=== PATIENT | male | born 1950 | race African-American/Black ===

== ENCOUNTER 2016-10-11 13:31 | Inpatient (IN) ==
[2016-10-11 14:11] LABS: Basophils % 0.1 % (0.0-0.8); Eosinophils % 0.1 % (0.00-10.9); Hematocrit 35.7 VOL% (42.0-52.0); Hemoglobin 11.5 GM/DL (14.0-18.0); Immature Granulocytes % 0.5 %; Lymphocytes # 1.7 10*3/uL (1.4-4.0); Lymphocytes % 8.6 % (21.2-54.2); Mean Corpuscular HGB Conc 32.2 GM/DL (32-36); Mean Corpuscular Hemoglobin 25 PG (27-34); Mean Corpuscular Volume 76.1 FL (87-102); Mean Platelet Volume 11.3 FL (9.6-12.0); Monocytes # 1.6 10*3/uL (0.11-0.8); Monocytes % 7.7 % (1.7-12.7); Neutrophils # 16.7 10*3/uL (1.4-7.4); Platelet Count 237 T/CUMM (130-400); Red Blood Count 4.69 MC/CUMM (3.8-5.5); Red Cell Distribution Width 17.3 % (9.3-17.3); White Blood Count 20.2 T/CUMM (4-12)
[2016-10-11 14:20] LABS: Apearance,Urine Slightly Hazy (Clear); Bilirubin,Urine Negative (Negative); Blood, Urine Large mg/dL (Negative); Glucose,Urine (UA) Negative (Negative); Ketones,Urine Negative (Negative); Mucus,Urine Occasional /LPF (Occasional); Nitrite,Urine Negative (Negative); Protein,Urine 30 MG/DL; RBC,Urine 344 /HPF (0-4); Squamous Epithelial Cell,Urine Occasional /HPF (0-10); Urine Color Straw (Yellow); Urine Specific Gravity 1.008 (1.001-1.035); Urine Urobilinogen < 2.0 EU/DL (0.2-1.0); WBC,Urine 74 /HPF (0-6)
[2016-10-11 14:22] LABS: PT Patient Result 10.2 SECS; Partial Thromboplastin Time 24.4 SECS (0-40)
[2016-10-11 14:29] LABS: Albumin 3.4 G/DL (3.4-5.0); Bilirubin,Total 0.4 MG/DL (0.2-1.0); Calcium 9.3 MG/DL (8.5-10.1); Osmolality,Calculated 279.5 MOS/KG (273-304); Potassium 3.7 MMOL/L (3.5-5.1); Total Protein 7.5 G/DL (6.4-8.3)
[2016-10-11 14:32] LABS: Anisocytosis Slight; Lymphocytes 13 % (20-55); Platelet Estimate Adequate; Poikilocytosis Slight; Segmented Neutrophils 80 % (50-85); Target Cells Slight; Total Cells Counted 100
[2016-10-11] MEDS ORDERED: LEVOFLOXACIN INJ 500 MG in PREMIX 1 EACH IV STA (15:20)
[2016-10-11] MEDS ORDERED: LEVOFLOXACIN INJ 100 ML IV ONE (15:21)
--- NOTE | 2016-10-11 15:40 | Ultrasound Report ---
Referring Physician: Valentino Powell Exam: US scrotum Date: October 11, 2016 Reason: Left testicular pain Comparison: Scrotal ultrasound June 05, 2010 Technique: Duplex scan of the scrotum was performed using B-Mode/grayscale imaging and Doppler spectral analysis and color flow. Ultrasound images were captured and stored. Findings: The right testicle measures 4.4 x 2.9 x 2.8 cm, and the left testicle measures 3.3 x 2.6 x 2.3 cm. No suspicious intratesticular lesion is identified. Both testicles demonstrate normal, symmetric vascular flow. Specifically, there is no evidence of testicular torsion. The right epididymal head measures 1.2 x 1.0 cm, and the left epididymal head measures 1.1 x 0.9 cm. There is a 0.5 x 0.4 cm cyst at the right epididymal head. The left epididymal body/tail is enlarged and heterogeneous with several complex cystic areas. There is also increased vascular flow at the left epididymis, and the patient is tender in this region. This is concerning for epididymitis with possible abscess formation. There are also small bilateral hydroceles with possible mild internal debris on the right. Impression: 1. There is no evidence of testicular torsion. 2. The left epididymal body/tail is enlarged and heterogeneous with several complex cystic areas. There is also increased vascular flow at the left epididymis, and the patient is tender in this region. This is concerning for left epididymitis with abscess formation. 3. Small bilateral hydroceles with possible internal debris on the right. PROCEDURE INTERPRETED AT [facility] DEPARTMENT OF RADIOLOGY Final Report Signed by: Dr. Baldev Almonte
[2016-10-11] MEDS ORDERED: GLUCAGON 1 MG VIAL IM PRN (16:06)
[2016-10-11] MEDS ORDERED: ONDANSETRON 4 MG/2 ML VIAL IV PRN (16:06)
[2016-10-11] MEDS ORDERED: ACETAMINOPHEN 325 MG TABLET PO PRN (16:06)
[2016-10-11] MEDS ORDERED: HYDROmorphone 2 MG/1 ML VIAL IV PRN (16:06)
[2016-10-11] MEDS ORDERED: DEXTROSE 50% 25 GM/50 ML VIAL IV PRN (16:06)
--- NOTE | 2016-10-11 16:15 | Emergency Department Note ---
Kristin Hardy Gwan, am scribing for, and in the presence of, Valentino Powell MD 14:50. Sherry Hardy Phillip K, MD, personally performed the services described in this documentation, ascribed by Tomas Foster in my presence, and it is both accurate and complete 615 . Arrival - Arrival Chief Complaint: GI Bleed/Rectal Stated Complaint: passing blood ED Nursing Triage Note: Pt c/o bright red blood in his stool with pain around his scrotum started this am. Mode of Arrival: Ambulatory Limitations: No Limitations Source: Patient, Old Records Reviewed, Asset Protection Manager, RN Notes Reviewed - History of Present Illness HPI Narrative: Pt is a 65 y/o male who presents to the ED with a c/o hematuria with an onset today. Patient stated that he is followed by Dr. Marquez and that he was last seen in office 2 months ago. His visit resulted in a follow up MRI scheduled in [place] on 11/17/2016. Patient continued to note that his associated sxs have been pain/edema to left testicle and chills. Patient denies any fever, pain in back, abd pain or any N/V. He confirmed that this has happened before resulting in a biopsy of Prostate performed [address] Marquez. Pt has a PMHx of HTN, NIDDM, dyslipidemia, ORIF and hernia repair. No other problems/ complaints reported in ED. Onset (ago): hour(s) Consistency: constant Severity: moderate Allergies/Adverse Reactions: Allergies Allergy/AdvReac Type Severity Reaction Status Date / Time No Known Allergies Allergy Unverified 11/16/14 11:04 Home Medications: Home Medications Medication Instructions Recorded Confirmed Type Aspirin EC Tab 81 mg PO DAILY 11/16/14 10/11/16 History Hydrochlorothiazide 25 mg PO DAILY 11/16/14 10/11/16 History Metformin HCl 500 mg PO BID 11/16/14 10/11/16 History Metoprolol Succinate 100 mg PO DAILY 11/16/14 10/11/16 History Pravastatin [Pravachol] 40 mg PO BEDTIME 11/16/14 10/11/16 History amLODIPine [Norvasc] 10 mg PO DAILY 11/16/14 10/11/16 History glipiZIDE [Glipizide Xl] 10 mg PO BID 11/16/14 10/11/16 History Albuterol Sulfate [Ventolin HFA] 2 puff INH Q6H PRN 10/11/16 10/11/16 History Finasteride 5 mg PO DAILY 10/11/16 10/11/16 History cloNIDine TAB [Catapres Tab] 0.2 mg PO BEDTIME 10/11/16 10/11/16 History Review of System - Review of System 12 point system: reviewed and no additional remarkable complaints except as stated - Review of System Constitutional: Absent: chills, fever Eyes: Absent: discharge, pain Head/Ears/Nose/Throat: Absent: earache Respiratory: Absent: cough Cardiovascular: Absent: chest pain, orthopnea Gastrointestinal: Present: other (blood in stool). Absent: abdominal pain, nausea Genitourinary male: Present: testicular pain. Absent: urgency, dysuria, frequency Musculoskeletal: Absent: arm pain, lower back pain, leg pain Medical,Surgical,& Family Hx - Medical History Cardio: History of: Hypertension Endocrine: History of: Diabetes Mellitus (NIDDM), Dyslipidemia Respiratory: History of: Asthma - Surgical History Abdominal Surgeries: Surgical HX of: Hernia Repair Orthopedic Surgeries: Surgical HX of;: Orthopedic Surgery (ORIF) - Family History Family History: Reports;: Family Cancer (mom sister), Family Hypertension (mom dad) Denies;: Family Diabetes, Family Heart Disease, Family Psychiatric Problems, Family Stroke - Social History Smoking Status: Never smoker Exam Vital Signs: Vital Signs Temperature 99.6 F 10/11/16 13:36 Pulse Rate 96 H 10/11/16 13:36 Respiratory Rate 18 10/11/16 13:36 Blood Pressure 235/100 10/11/16 13:36 O2 Sat by Pulse Oximetry 100 10/11/16 13:36 - General General appearance: alert, in no apparent distress - Head Head exam: Present: atraumatic, normocephalic - Eye Eye exam: Present: normal appearance, PERRL, EOMI - ENT ENT exam: Present: normal oropharynx, mucous membranes moist, TM's normal bilaterally, normal external ear exam - Neck Neck exam: Present: full ROM, trachea midline. Absent: tenderness, meningismus - Chest Chest inspection: Present: symmetric chest wall rise. Absent: tenderness - Abdominal Exam Abdominal exam: Present: soft, normal bowel sounds. Absent: distention, tenderness - Rectal Exam Rectal exam: Present: heme (-) stool - exam: Present: testicular tenderness (edema/tenderness noted ot left testicle ), other (prostate tenderness) - Extremities Exam Extremities exam: Present: full ROM, other (+1 edema noted ). Absent: tenderness, calf tenderness - Back Exam Back exam: Present: full ROM. Absent: tenderness - Neurological Exam Neurological exam: Present: alert, oriented X3, CN II-XII intact. Absent: motor sensory deficit - Psychiatric Psychiatric exam: Present: normal affect, normal mood - Skin Skin exam: Present: warm, dry, intact, normal color Results - Labs CBC & BMP: 10/11/16 13:47 10/11/16 13:47 Lab Results: I have reviewed the patients labs Labs: Laboratory Tests 10/11/16 13:47 WBC 20.2 H RBC 4.69 Hgb 11.5 L Hct 35.7 L MCV 76.1 L MCH 25 L Plt Count 237 Neut % (Auto) 83.0 H Lymph % (Auto) 8.6 L Neut # (Auto) 16.7 H [place] # (Auto) 1.6 H Laboratory Tests 10/11/16 10/11/16 13:47 13:47 INR 1.0 PT Patient/Control Mix 10.2 Circ Anticoag PTT 24.4 Urine pH 8.0 Ur Specific [place] 1.008 Urine Protein 30 Urine Blood Large Urine Urobilinogen < 2.0 H Urine Leukocytes Large H Urine RBC 344 Urine WBC 74 Ur Squamous Epith Cells Occasional Urine Mucus Occasional Laboratory Tests 10/11/16 10/11/16 13:47 13:47 WBC 20.2 H RBC 4.69 Hgb 11.5 L Hct 35.7 L MCV 76.1 L MCH 25 L Plt Count 237 Neut % (Auto) 83.0 H Lymph % (Auto) 8.6 L Neut # (Auto) 16.7 H [place] # (Auto) 1.6 H Lymphocytes 13 L Sodium 139 Potassium 3.7 Chloride 105 Carbon Dioxide 27 BUN 15 Creatinine 1.10 Glucose 129 H ALT 15 L Globulin 4.1 H Albumin/Globulin Ratio 0.8 L Laboratory Tests 10/11/16 13:47 Blood Type A NEGATIVE Antibody Screen Negative Laboratory Tests 10/11/16 15:01 Lactic Acid 1.6 - Diagnostic Findings Procedure: Ultrasound: report reviewed by me (Scrotal ultrasound: 1. There is no evidence of testicular torsion. 2. The left epidiymal body/tail is enlarged and heterogeneous with several complex cystic areas. There is also increased vascular flow at the left epididymis, and the patient is tender in thsi region. Thi sis concerning for left epididymitis with abscess formation. 3. Small bilateral hydroceles with possible internal debris on the right. ) Disposition Clinical Impression: Left epididymitis, Possible scrotal abscess, Urinary tract infection, Prostatitis Case discussed with: patient Disposition: Still a Patient Condition: Guarded Additional Instructions: Admit to Dr. Marquez.
[2016-10-11] MEDS ORDERED: cloNIDine 0.1 MG TABLET ONE (17:27)
[2016-10-11] MEDS: SODIUM CHLORIDE 0.9% 1,000 ML IV SCH (18:31)
[2016-10-11] MEDS: cefTRIAXone 1,000 MG in SODIUM CHLORIDE 0.9% 100 ML IV SCH (18:32)
[2016-10-11] MEDS ORDERED: ALBUTEROL 2.5 MG/3 ML NEB RESP TX SCH (19:22)
[2016-10-11] MEDS: DOCUSATE SODIUM 100 MG CAPSULE PO SCH (20:55)
[2016-10-11] MEDS: PRAVASTATIN 40 MG TABLET PO SCH (20:55)
[2016-10-11] MEDS ORDERED: ALBUTEROL 2.5 MG/3 ML NEB RESP TX PRN (22:20)
[2016-10-12] MEDS: SODIUM CHLORIDE 0.9% 1,000 ML IV SCH ×3 (03:00→20:46)
--- NOTE | 2016-10-12 07:51 | Urology History & Physical ---
- Constitutional Constitutional: Absent: excessive sweating, fatigue, malaise, weakness - EENT Nose, mouth and throat: Absent: dysphagia, sore throat - Cardiovascular Cardiovascular: Absent: chest pain with activity, dyspnea on exertion, radiating jaw, neck or arm pain, palpitations - Respiratory Respiratory: Absent: cough, hemoptysis, wheezing - Gastrointestinal Gastrointestinal: Absent: bloating, melena, vomiting, jaundice - Genitourinary Genitourinary: Present: as per HPI - Neurological Neurological: Absent: abnormal gait, abnormal speech - Psychiatric Psychiatric: Absent: anxiety, depression History of Present Illness Chief complaint: Left scrotal swelling and hematuria History of present illness: Mr. Dee is a 65 year old male This 65-year-old black male has a history of BPH and is been on Proscar. He was previously scheduled to have an MRI of his prostate was not able to have this done and is been scheduled for the summer. He was seen in the emergency room with a one-day history of hematuria and pain and swelling in the left testicle. He was noted to have pyuria and elevated white count and an elevated temperature and scrotal ultrasound showed a left epididymitis. He is admitted for cultures and IV antibiotics. The patient is a type II diabetic on oral medication Home Medications Medication Instructions Recorded Confirmed Type Aspirin EC Tab 81 mg PO DAILY 11/16/14 10/11/16 History Hydrochlorothiazide 25 mg PO DAILY 11/16/14 10/11/16 History Metformin HCl 500 mg PO BID 11/16/14 10/11/16 History Metoprolol Succinate 100 mg PO DAILY 11/16/14 10/11/16 History Pravastatin [Pravachol] 40 mg PO BEDTIME 11/16/14 10/11/16 History amLODIPine [Norvasc] 10 mg PO DAILY 11/16/14 10/11/16 History glipiZIDE [Glipizide Xl] 10 mg PO BID 11/16/14 10/11/16 History Albuterol Sulfate [Ventolin HFA] 2 puff INH Q6H PRN 10/11/16 10/11/16 History Finasteride 5 mg PO DAILY 10/11/16 10/11/16 History cloNIDine TAB [Catapres Tab] 0.2 mg PO BEDTIME 10/11/16 10/11/16 History Allergies Allergy/AdvReac Type Severity Reaction Status Date / Time No Known Allergies Allergy Unverified 11/16/14 11:04 Medical,Surgical,& Family Hx - Medical History Cardio: History of: Hypertension Psychological: No history of: Psychiatric Problems Neurology: No history of: Neurological Problems Endocrine: History of: Diabetes Mellitus (NIDDM), Dyslipidemia Rheumatology: No history of;: Rheumatological Problems Respiratory: History of: Asthma Renal: No history of: Renal Problems Genitourinary: History of: Prostate Problems Gastrointestinal: No history of: GI Problems - Surgical History Surgical History: noncontributory Cardiac Surgeries: Patient Denies: Cardiac Surgery Abdominal Surgeries: Surgical HX of: Hernia Repair Orthopedic Surgeries: Surgical HX of;: Orthopedic Surgery (ORIF) - Family History Family History: noncontributory Family History: Reports;: Family Cancer (mom sister), Family Hypertension (mom dad) Denies;: Family Diabetes, Family Heart Disease, Family Psychiatric Problems, Family Stroke - Social History Smoking Status: Never smoker Exam - Constitutional Vitals: Period Temp Pulse Resp BP Sys/[place] Pulse Ox Last 24 Hr 98.3 F-101.2 F 74-90 18-19 127-143/57-77 93-98 General appearance: no acute distress, over weight - Head Head exam: Present: normocephalic - Neck Neck exam: Present: normal inspection - Respiratory Respiratory exam: Present: clear to auscultation bilaterally, decreased breath sounds - Cardiovascular Cardiovascular exam: Present: regular rate and rhythm - GI/Abdominal GI/Abdominal exam: Absent: distended, guarding, mass, tenderness - Genitourinary Genitourinary: scrotal lesion (Left testicle is indurated enlarged and tender. I am unable to separate the epididymis from the testicle) - Neurological Exam Neurological exam: Present: alert, oriented X3 - Psychiatric Psychiatric exam: Present: normal affect, normal mood - Skin Skin exam: Present: warm, dry Results - Labs CBC & BMP: 10/11/16 13:47 10/11/16 13:47
[2016-10-12] MEDS: metFORMIN 500 MG TABLET PO SCH ×2 (09:18→16:40)
[2016-10-12] MEDS: DOCUSATE SODIUM 100 MG CAPSULE PO SCH ×2 (09:18→20:47)
[2016-10-12] MEDS: ASPIRIN EC 81 MG TABLET PO SCH (09:18)
[2016-10-12] MEDS: PANTOPRAZOLE 40 MG TABLET PO SCH (09:18)
[2016-10-12] MEDS: FINASTERIDE 5 MG TABLET PO SCH (09:18)
[2016-10-12] MEDS: hydroCHLOROthiazide 25 MG TABLET PO SCH (09:18)
[2016-10-12] MEDS: METOPROLOL SUCCINATE XL 100 MG TABLET PO SCH (09:18)
[2016-10-12] MEDS: amLODIPine 10 MG TABLET PO SCH (09:18)
[2016-10-12 13:22] LABS: Apearance,Urine Slightly Hazy (Clear); Bacteria,Urine Occasional /HPF (Few); Bilirubin,Urine Negative (Negative); Blood, Urine Moderate mg/dL (Negative); Glucose,Urine (UA) Negative (Negative); Ketones,Urine Negative (Negative); Mucus,Urine Occasional /LPF (Occasional); Nitrite,Urine Negative (Negative); Protein,Urine 30 MG/DL; RBC,Urine 27 /HPF (0-4); Squamous Epithelial Cell,Urine Occasional /HPF (0-10); Urine Color Yellow (Yellow); Urine Specific Gravity 1.013 (1.001-1.035); Urine Urobilinogen < 2.0 EU/DL (0.2-1.0); WBC,Urine 30 /HPF (0-6)
[2016-10-12] MEDS: cefTRIAXone 1,000 MG in SODIUM CHLORIDE 0.9% 100 ML IV SCH (16:40)
[2016-10-12] MEDS: PRAVASTATIN 40 MG TABLET PO SCH (20:47)
[2016-10-13] MEDS: SODIUM CHLORIDE 0.9% 1,000 ML IV SCH ×3 (05:07→21:47)
--- NOTE | 2016-10-13 07:34 | Urology Progress Note ---
Urology - PN: Subj Interval history: The patient has no temperature elevation. He is feeling better. Blood cultures are negative but his urine culture is positive with gram-negative rods and the final result is pending. If the patient continues to improve I will plan discharge tomorrow. I will recheck his CBC today Exam - Constitutional Vitals: Period Temp Pulse Resp BP Sys/[place] Pulse Ox Last 24 Hr 97.9 F-99.8 F 81-102 16-20 162-175/66-82 93-98 Results - Labs CBC & BMP: 10/11/16 13:47 10/11/16 13:47
[2016-10-13 08:29] LABS: Basophils % 0.1 % (0.0-0.8); Eosinophils % 0.2 % (0.00-10.9); Hematocrit 29.2 VOL% (42.0-52.0); Immature Granulocytes % 0.9 %; Immature Granulocytes Absolute 0.17 #; Lymphocytes # 1.8 10*3/uL (1.4-4.0); Lymphocytes % 9.1 % (21.2-54.2); Mean Corpuscular HGB Conc 31.5 GM/DL (32-36); Mean Corpuscular Hemoglobin 24 PG (27-34); Mean Platelet Volume 11.9 FL (9.6-12.0); Monocytes # 1.6 10*3/uL (0.11-0.8); Monocytes % 8.4 % (1.7-12.7); Neutrophils # 15.7 10*3/uL (1.4-7.4); Neutrophils % 81.3 % (38.7-73.9); Red Blood Count 3.79 MC/CUMM (3.8-5.5); Red Cell Distribution Width 17.1 % (9.3-17.3); White Blood Count 19.3 T/CUMM (4-12)
[2016-10-13 08:38] LABS: Hemoglobin 9.2 GM/DL (14.0-18.0); Platelet Count 178 T/CUMM (130-400)
[2016-10-13] MEDS: amLODIPine 10 MG TABLET PO SCH (09:08)
[2016-10-13] MEDS: DOCUSATE SODIUM 100 MG CAPSULE PO SCH ×2 (09:08→21:46)
[2016-10-13] MEDS: FINASTERIDE 5 MG TABLET PO SCH (09:09)
[2016-10-13] MEDS: PANTOPRAZOLE 40 MG TABLET PO SCH (09:09)
[2016-10-13] MEDS: METOPROLOL SUCCINATE XL 100 MG TABLET PO SCH (09:09)
[2016-10-13] MEDS: hydroCHLOROthiazide 25 MG TABLET PO SCH (09:09)
[2016-10-13] MEDS: metFORMIN 500 MG TABLET PO SCH ×2 (09:09→16:44)
[2016-10-13] MEDS: ASPIRIN EC 81 MG TABLET PO SCH (09:09)
[2016-10-13] MEDS: cefTRIAXone 1,000 MG in SODIUM CHLORIDE 0.9% 100 ML IV SCH (16:42)
[2016-10-13] MEDS: PRAVASTATIN 40 MG TABLET PO SCH (23:33)
[2016-10-14] MEDS: SODIUM CHLORIDE 0.9% 1,000 ML IV SCH ×2 (04:10→09:52)
--- NOTE | 2016-10-14 07:46 | Urology Progress Note ---
Urology - PN: Subj Interval history: The patient still has low-grade temperature of 100 and his white count yesterday is still elevated. The patient feels better but on the recommended we continue IV antibiotics a few more days before discharge. The patient's blood cultures are negative but his urine culture is growing E. coli sensitive to multiple antibiotics. The patient is on Rocephin which is an appropriate antibiotic Exam - Constitutional Vitals: Period Temp Pulse Resp BP Sys/[place] Pulse Ox Last 24 Hr 98.4 F-100.9 F 84-98 16-20 131-199/66-86 94-99 Results - Labs CBC & BMP: 10/13/16 07:56 10/11/16 13:47
[2016-10-14] MEDS: ASPIRIN EC 81 MG TABLET PO SCH (09:10)
[2016-10-14] MEDS: metFORMIN 500 MG TABLET PO SCH ×2 (09:10→18:01)
[2016-10-14] MEDS: amLODIPine 10 MG TABLET PO SCH (09:10)
[2016-10-14] MEDS: METOPROLOL SUCCINATE XL 100 MG TABLET PO SCH (09:11)
[2016-10-14] MEDS: PANTOPRAZOLE 40 MG TABLET PO SCH (09:11)
[2016-10-14] MEDS: FINASTERIDE 5 MG TABLET PO SCH (09:11)
[2016-10-14] MEDS: hydroCHLOROthiazide 25 MG TABLET PO SCH (09:11)
[2016-10-14] MEDS: DOCUSATE SODIUM 100 MG CAPSULE PO SCH ×2 (09:53→20:48)
[2016-10-14] MEDS: cefTRIAXone 1,000 MG in SODIUM CHLORIDE 0.9% 100 ML IV SCH ×2 (12:21→23:30)
[2016-10-14] MEDS: PRAVASTATIN 40 MG TABLET PO SCH (20:48)
--- NOTE | 2016-10-15 08:14 | Urology Progress Note ---
Urology - PN: Subj Interval history: The patient reports less pain and swelling in his physical examination is definitely improved. The patient had a 99 temperature yesterday was his maximum. Possibly discharge tomorrow or Monday Exam - Constitutional Vitals: Period Temp Pulse Resp BP Sys/[place] Pulse Ox Last 24 Hr 97.9 F-99.5 F 86-103 16-20 154-195/72-97 92-97 Results - Labs CBC & BMP: 10/13/16 07:56 10/11/16 13:47
[2016-10-15] MEDS: amLODIPine 10 MG TABLET PO SCH (08:57)
[2016-10-15] MEDS: ASPIRIN EC 81 MG TABLET PO SCH (08:57)
[2016-10-15] MEDS: PANTOPRAZOLE 40 MG TABLET PO SCH (08:57)
[2016-10-15] MEDS: hydroCHLOROthiazide 25 MG TABLET PO SCH (08:57)
[2016-10-15] MEDS: metFORMIN 500 MG TABLET PO SCH ×2 (08:57→17:09)
[2016-10-15] MEDS: METOPROLOL SUCCINATE XL 100 MG TABLET PO SCH (08:58)
[2016-10-15] MEDS: FINASTERIDE 5 MG TABLET PO SCH (08:58)
[2016-10-15] MEDS: DOCUSATE SODIUM 100 MG CAPSULE PO SCH ×2 (09:12→22:01)
[2016-10-15] MEDS: cefTRIAXone 1,000 MG in SODIUM CHLORIDE 0.9% 100 ML IV SCH ×2 (12:21→23:42)
[2016-10-15] MEDS: PRAVASTATIN 40 MG TABLET PO SCH (22:01)
[2016-10-16 03:55] LABS: Basophils % 0.2 % (0.0-0.8); Eosinophils # 0.1 10*3/uL (0.0-0.87); Eosinophils % 0.8 % (0.00-10.9); Hematocrit 29.1 VOL% (42.0-52.0); Hemoglobin 9.4 GM/DL (14.0-18.0); Immature Granulocytes % 0.4 %; Immature Granulocytes Absolute 0.05 #; Lymphocytes % 15.5 % (21.2-54.2); Mean Corpuscular HGB Conc 32.3 GM/DL (32-36); Mean Corpuscular Hemoglobin 24 PG (27-34); Mean Corpuscular Volume 74.2 FL (87-102); Mean Platelet Volume 12.1 FL (9.6-12.0); Monocytes # 1.6 10*3/uL (0.11-0.8); Monocytes % 12.7 % (1.7-12.7); Neutrophils # 8.8 10*3/uL (1.4-7.4); Neutrophils % 70.4 % (38.7-73.9); Platelet Count 241 T/CUMM (130-400); Red Blood Count 3.92 MC/CUMM (3.8-5.5); Red Cell Distribution Width 17.3 % (9.3-17.3); White Blood Count 12.6 T/CUMM (4-12)
[2016-10-16 05:35] LABS: Eosinophils 1 % (0-10); Hypochromasia 1+; Lymphocytes 13 % (20-55); Platelet Estimate Normal; Segmented Neutrophils 72 % (50-85); Target Cells Few; Total Cells Counted 100
[2016-10-16 07:24] VITALS: BP 149/72
[2016-10-16] MEDS: metFORMIN 500 MG TABLET PO SCH (08:30)
[2016-10-16] MEDS: FINASTERIDE 5 MG TABLET PO SCH (09:13)
[2016-10-16] MEDS: METOPROLOL SUCCINATE XL 100 MG TABLET PO SCH (09:13)
[2016-10-16] MEDS: PANTOPRAZOLE 40 MG TABLET PO SCH (09:13)
[2016-10-16] MEDS: amLODIPine 10 MG TABLET PO SCH (09:13)
[2016-10-16] MEDS: ASPIRIN EC 81 MG TABLET PO SCH (09:13)
[2016-10-16] MEDS: hydroCHLOROthiazide 25 MG TABLET PO SCH (09:14)
[2016-10-16] MEDS: DOCUSATE SODIUM 100 MG CAPSULE PO SCH (09:14)
--- NOTE | 2016-10-16 10:08 | Discharge Summary ---
Hospital Course - Hospital Course Hospital Course: This 65-year-old black male diabetic was admitted to hospital with hematuria pyuria evidence of urinary tract infection in the left epididymoorchitis. Infection of the scrotum was confirmed on ultrasound. He had an elevated temperature and elevated white count. Urine culture subsequently grew out E. coli sensitive to multiple antibiotics. He was treated with IV Rocephin and is now afebrile and his white count is decreased. He is in improved clinically and he has much less pain and swelling. He will be discharged on Levaquin and followed in the office. Discharge Plan - Discharge Data Disposition: Disch To Home/Self Care Condition at Discharge: Stable Discharge Diet: diabetic diet Activity: resume usual activities as tolerated Hygiene: no restrictions Weight Bearing at Discharge: full weight bearing Driving: no restrictions Contact your physician if you experience:: fever over 101 - Discharge Medications No Action amLODIPine [Norvasc] 10 mg PO DAILY Aspirin EC Tab 81 mg PO DAILY Pravastatin [Pravachol] 40 mg PO BEDTIME Hydrochlorothiazide 25 mg PO DAILY glipiZIDE [Glipizide Xl] 10 mg PO BID Metoprolol Succinate 100 mg PO DAILY Metformin HCl 500 mg PO BID Albuterol Sulfate [Ventolin HFA] 2 puff INH Q6H PRN PRN Reason: Shortness Of Breath/Wheezing Finasteride 5 mg PO DAILY cloNIDine TAB [Catapres Tab] 0.2 mg PO BEDTIME - Follow Up or Referral Follow Up: Holden Marquez MD [Physician] - 2 Weeks (mondayoctober 28 at 9am) - Forms/Instructions Exam - Constitutional Vitals: Period Temp Pulse Resp BP Sys/[place] Pulse Ox Last 24 Hr 98.1 F-99.4 F 78-92 18-20 149-161/62-82 92-98 Discharge Results Labs on day of discharge: Labs from last 24 hours 10/16/16 10/16/16 10/16/16 07:01 06:19 02:02 WBC 12.6 H D RBC 3.92 Hgb 9.4 L Hct 29.1 L MCV 74.2 L MCH 24 L MCHC 32.3 RDW 17.3 Plt Count 241 D MPV 12.1 H Neut % (Auto) 70.4 Lymph % (Auto) 15.5 L [place] % (Auto) 12.7 Eos % (Auto) 0.8 Baso % (Auto) 0.2 Neut # (Auto) 8.8 H Lymph # (Auto) 2.0 [place] # (Auto) 1.6 H Eos # (Auto) 0.1 Baso # (Auto) 0.0 Total Counted 100 Immature Gran % 0.4 Nucleated RBC % 0.0 Immature Gran # 0.05 Segmented Neutrophils 72 Lymphocytes 13 L Monocytes 14 Eosinophils 1 Nucleated RBCs # 0.00 Platelet Estimate Normal Hypochromasia 1+ Target Cells Few POC Glucose 116 H 58 L 10/16/16 10/15/16 00:55 15:26 WBC RBC Hgb Hct MCV MCH MCHC RDW Plt Count MPV Neut % (Auto) Lymph % (Auto) [place] % (Auto) Eos % (Auto) Baso % (Auto) Neut # (Auto) Lymph # (Auto) [place] # (Auto) Eos # (Auto) Baso # (Auto) Total Counted Immature Gran % Nucleated RBC % Immature Gran # Segmented Neutrophils Lymphocytes Monocytes Eosinophils Nucleated RBCs # Platelet Estimate Hypochromasia Target Cells POC Glucose 85 93 DS: Provider Date of admission: 10/12/16 10:21 Primary care physician: Loida Church M.D. Attending physician on admission: Holden Marquez MD Discharging clinician: Holden Marquez MD
[2016-10-16] MEDS: cefTRIAXone 1,000 MG in SODIUM CHLORIDE 0.9% 100 ML IV SCH ×2 (10:53→11:53)
== END 2016-10-16 13:21 | disposition home or self-care (01) | DRG 728 ==
LOC: N.EDINP 13:31 → N.ED 13:31 → N.5E 17:19
PROVIDERS: ADMIT Urology; ATTEND Urology

== ENCOUNTER 2017-02-14 09:04 | Inpatient (IN) ==
[2017-02-14] MEDS ORDERED: NITROGLYCERIN 2% OINT 1 INCH/GM PACK TOP STA (09:54)
[2017-02-14] MEDS ORDERED: MORPHINE 2 MG/1 ML SYRINGE IV STA (09:54)
[2017-02-14] MEDS ORDERED: ASPIRIN 325 MG TABLET PO STA (09:54)
[2017-02-14] MEDS ORDERED: ONDANSETRON 4 MG/2 ML VIAL IV STA (09:54)
[2017-02-14] MEDS ORDERED: FUROSEMIDE 100 MG/10 ML VIAL IV STA (09:54)
[2017-02-14] MEDS ORDERED: hydrALAZINE 20 MG/1 ML VIAL IV STA (09:54)
[2017-02-14] MEDS ORDERED: ALBUTEROL 2.5 MG/3 ML NEB RESP TX SCH (10:00)
--- NOTE | 2017-02-14 10:00 | EKG Report ---
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
[2017-02-14 10:03] LABS: Basophils # 0.1 10*3/uL (0.0-0.2); Basophils % 0.6 % (0.0-0.8); Eosinophils # 0.1 10*3/uL (0.0-0.87); Eosinophils % 0.9 % (0.00-10.9); Hematocrit 33.6 VOL% (42.0-52.0); Hemoglobin 10.8 GM/DL (14.0-18.0); Immature Granulocytes % 0.4 %; Immature Granulocytes Absolute 0.04 #; Lymphocytes # 1.4 10*3/uL (1.4-4.0); Lymphocytes % 15.7 % (21.2-54.2); Mean Corpuscular HGB Conc 32.1 GM/DL (32-36); Mean Corpuscular Hemoglobin 25 PG (27-34); Mean Corpuscular Volume 77.1 FL (87-102); Mean Platelet Volume 11.1 FL (9.6-12.0); Monocytes # 0.6 10*3/uL (0.11-0.8); Monocytes % 6.4 % (1.7-12.7); Neutrophils # 6.9 10*3/uL (1.4-7.4); Platelet Count 210 T/CUMM (130-400); Red Blood Count 4.36 MC/CUMM (3.8-5.5); Red Cell Distribution Width 17.1 % (9.3-17.3); White Blood Count 9.1 T/CUMM (4-12)
[2017-02-14 10:11] LABS: PT Patient Result 10.7 SECS
--- NOTE | 2017-02-14 10:14 | XRay Report ---
Exam: XR chest 1V portable Date: 02/14/2017 9:54 AM Indication: Shortness of breath Comparison: None Technical: 11/16/2014 Findings: Mild prominence the cardiac silhouette. Shunt vascularity is present with low volume effusions. Mild thickening of the minor fissure. Peribronchial Cuffing is present. No pneumothorax. Degenerative change present along the thoracic spine with lateral marginal osteophytes. Impression: Cardiomegaly with component of interstitial edema and low volume effusion right greater than left, suggests a component of mild cardiac decompensation CHF PROCEDURE INTERPRETED AT [facility] DEPARTMENT OF RADIOLOGY Final Report Signed by: Dr. Mitch Thomas
[2017-02-14 10:22] LABS: Albumin 3.1 G/DL (3.4-5.0); Bilirubin,Total 0.5 MG/DL (0.2-1.0); Calcium 8.8 MG/DL (8.5-10.1); Magnesium 2.3 MG/DL (1.8-2.4); Osmolality,Calculated 288.1 MOS/KG (273-304); Potassium 4.2 MMOL/L (3.5-5.1); Total Protein 7.2 G/DL (6.4-8.3); Troponin I Only 0.031 NG/ML (0.00-0.045)
[2017-02-14] MEDS ORDERED: FUROSEMIDE 100 MG/10 ML VIAL ONE (10:33)
[2017-02-14] MEDS ORDERED: NITROGLYCERIN 2% OINT 1 INCH/GM PACK TOP ONE (10:33)
[2017-02-14] MEDS ORDERED: MORPHINE 2 MG/1 ML SYRINGE ONE (10:33)
[2017-02-14] MEDS ORDERED: ONDANSETRON 4 MG/2 ML VIAL ONE (10:33)
[2017-02-14] MEDS ORDERED: ASPIRIN 325 MG TABLET ONE (10:33)
[2017-02-14] MEDS ORDERED: hydrALAZINE 20 MG/1 ML VIAL ONE (10:33)
--- NOTE | 2017-02-14 12:44 | CT Report ---
History: Shortness of breath. Elevated d-dimer Date: 02/14/2017 Study: CT chest with pulmonary embolus technique Comparison exam: August 11, [address] sections were obtained through the lungs following the IV administration of 80 mL of Omnipaque 350 without immediate complication. Multiplanar reconstruction images are also evaluated. There is no discrete filling defect within the pulmonary arterial tree to specifically suggest acute pulmonary embolic disease. There is no thoracic aortic aneurysm or dissection. There is mild coronary artery calcification with involvement of the left main and left anterior descending coronary arteries. There is mild mediastinal lymphadenopathy with a 12 mm short axis diameter right paratracheal node, 19 mm left hilar node. There is moderate elevation of the right hemidiaphragm. There is atelectatic change in the right middle lobe and both lower lobes. There is mild left greater than right pleural effusion. There is moderate thoracic spondylosis. Impression: No obvious evidence of acute pulmonary embolic disease, though there is some less than optimal timing of IV contrast bolus, slightly decreasing sensitivity for small peripheral emboli Nonspecific mildly mediastinal lymphadenopathy Nonspecific moderate elevation of the right hemidiaphragm which is chronic and unchanged from the August 11, 2014 CT study. Mild left greater than right pleural effusion Mild dependent atelectasis PROCEDURE INTERPRETED AT [facility] DEPARTMENT OF RADIOLOGY Final Report Signed by: Dr. Latosha Mota
--- NOTE | 2017-02-14 12:51 | Emergency Department Note ---
ICynthia Emily, am scribing for, and in the presence of, Boone Walls MD 09: 43. Titi Hardy Charles R, MD, personally performed the services described in this documentation, ascribed by Irene Marie in my presence, and it is both accurate and complete . Arrival - Arrival Chief Complaint: Shortness of Breath Stated Complaint: chest and walk sob ED Nursing Triage Note: c/o shortness of breath onset approx 2 months ago with worsening last pm. +dry cough. +pedal edema. Denies pain. Mode of Arrival: Wheelchair Limitations: No Limitations Source: Patient - History of Present Illness HPI Narrative: Pt is a 66 y/o male who came to ED with c/o SOB that has been ongoing for over 3 months but has worsened in past week. Pt notes setting up appointment with PCP in [place], but missed it. Pt has associated sxs of dry cough, edema lower extremities and orthopnea. However, spouse notes that pt eats whatever he wants and uses salt on everything. Pt's BP is elevated at 204/107, in ED. Spouse also notes snoring while sleeping and always sleeps upright. He notes taking lasix. PMHx of NIDDM, HLD, HTN. Consistency: constant Severity: mild, moderate Severity scale (1-10): 4 Quality: fullness Allergies/Adverse Reactions: Allergies Allergy/AdvReac Type Severity Reaction Status Date / Time No Known Allergies Allergy Verified 02/14/17 09:13 Home Medications: Home Medications Medication Instructions Recorded Confirmed Type Aspirin EC Tab 81 mg PO DAILY 11/16/14 10/11/16 History Hydrochlorothiazide 25 mg PO DAILY 11/16/14 10/11/16 History Metformin HCl 500 mg PO BID 11/16/14 10/11/16 History Metoprolol Succinate 100 mg PO DAILY 11/16/14 10/11/16 History Pravastatin [Pravachol] 40 mg PO BEDTIME 11/16/14 10/11/16 History amLODIPine [Norvasc] 10 mg PO DAILY 11/16/14 10/11/16 History glipiZIDE [Glipizide Xl] 10 mg PO BID 11/16/14 10/11/16 History Albuterol Sulfate [Ventolin HFA] 2 puff INH Q6H PRN 10/11/16 10/11/16 History Finasteride 5 mg PO DAILY 10/11/16 10/11/16 History cloNIDine TAB [Catapres Tab] 0.2 mg PO BEDTIME 10/11/16 10/11/16 History Review of System - Review of System 12 point system: reviewed and no additional remarkable complaints except as stated - Review of System Constitutional: Absent: chills, fever Respiratory: Present: cough, respiratory distress Cardiovascular: Present: orthopnea, edema. Absent: chest pain, syncope Gastrointestinal: Absent: abdominal pain, nausea Musculoskeletal: Absent: arm pain, leg pain Skin: Absent: rash Neurological: Absent: headache Medical,Surgical,& Family Hx - Medical History Cardio: History of: Hypertension Psychological: No history of: Psychiatric Problems Neurology: No history of: Neurological Problems Endocrine: History of: Diabetes Mellitus (NIDDM), Dyslipidemia Rheumatology: No history of;: Rheumatological Problems Respiratory: History of: Asthma Renal: No history of: Renal Problems Genitourinary: History of: Prostate Problems Gastrointestinal: No history of: GI Problems - Surgical History Cardiac Surgeries: Patient Denies: Cardiac Surgery Abdominal Surgeries: Surgical HX of: Hernia Repair Orthopedic Surgeries: Surgical HX of;: Orthopedic Surgery (ORIF) - Family History Family History: Reports;: Family Cancer (mom sister), Family Hypertension (mom dad) Denies;: Family Diabetes, Family Heart Disease, Family Psychiatric Problems, Family Stroke - Social History Smoking Status: Never smoker Frequency of Alcohol Use: None Type of Drug Use: None Marital Status: Lives With:: Spouse Functional capacity: independent ambulation Exam Vital Signs: Vital Signs Temperature 97.8 F 02/14/17 09:34 Pulse Rate 82 02/14/17 09:34 Respiratory Rate 20 02/14/17 09:34 Blood Pressure 213/109 02/14/17 09:34 O2 Sat by Pulse Oximetry 97 02/14/17 09:08 - General General appearance: alert, in no apparent distress, obese - Head Head exam: Present: atraumatic, normocephalic - Eye Eye exam: Present: PERRL, EOMI - ENT ENT exam: Present: mucous membranes moist. Absent: mucous membranes dry - Neck Neck exam: Present: full ROM - Chest Chest inspection: Present: symmetric chest wall rise - Respiratory Respiratory exam: Present: rales (bilateral rales). Absent: accessory muscle use, respiratory distress - Cardiovascular Cardiovascular exam: Present: tachycardia, normal heart sounds - Abdominal Exam Abdominal exam: Present: soft, distention (bloated). Absent: tenderness, guarding, rebound - Extremities Exam Extremities exam: Present: full ROM, pedal edema (+3). Absent: tenderness - Neurological Exam Neurological exam: Present: alert, oriented X3, CN II-XII intact. Absent: motor sensory deficit - Psychiatric Psychiatric exam: Present: normal affect, normal mood - Skin Skin exam: Present: warm, dry Course - Consultations Consultation #1: Hospitalist will admit patient Time: 12:47 Results - Labs CBC & BMP: 02/14/17 09:28 02/14/17 09:28 Lab Results: I have reviewed the patients labs Labs: Laboratory Tests 04/20/16 02/14/17 23:32 09:28 WBC 9.1 RBC 4.36 Hgb 10.8 L Hct 33.6 L MCV 77.1 L MCH 25 L Plt Count 210 Neut % (Auto) 76.0 H Lymph % (Auto) 15.7 L Urine Blood Large Urine Urobilinogen < 2.0 H Laboratory Tests 02/14/17 02/14/17 09:28 09:28 Sodium 142 Potassium 4.2 Chloride 108 H Carbon Dioxide 28 Anion Gap 10.2 BUN 20 H Creatinine 1.00 GFR Calculation 141 Glucose 151 H AST 21 B-Natriuretic Peptide 250 H Albumin 3.1 L Globulin 4.1 H Albumin/Globulin Ratio 0.7 L - Diagnostic Findings Procedure: Chest x-ray: report reviewed by me (Cardiomegaly with component of interstitial edema and low volume effusion right greater than left, suggest a component of mild cardiac decompensation CHF.) Disposition Clinical Impression: HTN (hypertension), Congestive heart failure, Exertional dyspnea, Uncontrolled hypertension Case discussed with: patient, patient's family Disposition: Still a Patient Condition: Stable Time of Disposition: 12:50
[2017-02-14] MEDS ORDERED: niCARdipine INJ 25 MG in SODIUM CHLORIDE 0.9% 240 ML IV SCH (13:30)
[2017-02-14] MEDS ORDERED: DEXTROSE 50% 25 GM/50 ML VIAL IV PRN (13:33)
[2017-02-14] MEDS ORDERED: DEXTROSE 50% 25 GM/50 ML SYRINGE IV PRN (13:33)
[2017-02-14] MEDS ORDERED: GLUCAGON 1 MG VIAL IM PRN ×2 (13:33)
--- NOTE | 2017-02-14 13:41 | Hospitalist History & Physical ---
<Floyd San - Last Filed: 02/14/17 13:38> Assessment and Plan (1) Congestive heart failure Status: Acute Assessment and plan: At the time of ED presentation, the patient was noted to be grossly edematous with 4+ pitting edema. In addition, the patient has been experiencing paroxysmal nocturnal dyspnea, dyspnea upon minimal exertion, and a dry nonproductive cough. The patient BNP was noted at 250; which was relatively low however the patient is experiencing profound symptoms of heart failure. The patient reported that he has never been seen by a salvage cutter or has never been told that he had congestive heart failure. Chest x-ray was significant for cardiomegaly with a component of interstitial edema and low volume effusion right greater than the left which was highly suggestive of component of mild cardiac compensated congestive heart failure. We will obtain echocardiogram, bilateral venous Doppler studies, lipid panel, and hemoglobin A1c.We will continue diuresis, monitor intake and output, recheck labs in a.m. We will recheck chest x-ray in a.m. We will consult cardiology to evaluate and assist. Current Visit: Yes (2) Uncontrolled hypertension Status: Acute Assessment and plan: At the time of ED presentation, the patient was noted to be grossly hypertensive with systolic blood pressure noted above 200. The patient was given multiple antihypertensive agents with minimal decrease in blood pressure noted. A Cardene drip was initiated in the ED. We will continue Cardene drip as previously ordered and titrate as needed. The patient reports that he is largely compliant however I feel that this is not the case. His who was present at bedside reported that the patient "does whatever he wants to do". In addition, she reported that the patient does not exercise or comply with any dietary restrictions. Current Visit: Yes (3) Diabetes Status: Chronic Assessment and plan: Glucose at the time of ED presentation was noted at 151. We will obtain hemoglobin A1c and start Accu-Cheks with sliding scale coverage. We will consult diabetes management and the dietitian to evaluate and assist during the clinical encounter. Current Visit: No (4) Hyperlipidemia Status: Chronic Assessment and plan: Lipid panel has been ordered Current Visit: No History of Present Illness Chief complaint: shortness of breath History of present illness: This is a very pleasant 66 year-old male that presented to the ED at [facility] this afternoon for the evaluation of shortness of breath. Patient has a medical history significant for hypertension, non-insulin -dependent diabetes mellitus, benign prostatic hypertrophy, hyperlipidemia and asthma. Patient has surgical history significant for hernia repair, and open reduction and internal fixation of the right ankle. The patient reported the onset of symptoms 3 months prior to presentation; however reported that his symptoms increase in severity in the last past week. He reported that he has been able to lie flat at night, become short of breath upon minimal exertion, and has developed a dry nonproductive cough. In addition, the patient reported and noted increase in edema to his bilateral lower extremities. He reports that he is followed by a primary care physician in [facility] however he recently missed a scheduled appointment. His was present at bedside reported that the patient is largely noncompliant and basically "does whatever he wants to do". His symptoms became severe overnight prompting him to present to the ED for further evaluation. The patient was assessed at the time of ED presentation. The patient was noted to be grossly hypertensive with a blood pressure recorded at 204/107. In addition, the patient was noted to be grossly edematous with +4 edema noted to his bilateral lower extremities. Multiple anti-hypertensive agents were given in response to the patient's blood pressure however the patient's blood pressure remain markedly elevated. Labs were obtained which were significant for hemoglobin 10.8, hematocrit 33.6, chloride 108, BUN 20, d-dimer 4.1, glucose 151, troponin 0.031, and BNP at 250. Chest x-ray significant for cardiomegaly with a component of interstitial edema and low-volume effusion right greater than left which was suggestive of a component of mild cardiac decompensation congestive heart failure. CT chest was unremarkable for any obvious evidence of acute pulmonary embolic disease, mild left greater than right pleural effusion, and mild dependent atelectasis. After brief discussion with both Dr. Walls and Dr. Coyle, the patient will be admitted to the hospitalist service for continuation of care. Due to the severity of the patient's hypertension, the patient will be placed in the critical care setting. Home medications have been reviewed and reconciled. CODE STATUS discussed; patient is a FULL CODE. Home Medications Medication Instructions Recorded Confirmed Type Aspirin EC Tab 81 mg PO DAILY 11/16/14 02/14/17 History Hydrochlorothiazide 25 mg PO DAILY 11/16/14 02/14/17 History Metformin HCl 500 mg PO BID 11/16/14 02/14/17 History Metoprolol Succinate 100 mg PO DAILY 11/16/14 02/14/17 History Pravastatin [Pravachol] 40 mg PO BEDTIME 11/16/14 02/14/17 History amLODIPine [Norvasc] 10 mg PO DAILY 11/16/14 02/14/17 History glipiZIDE [Glipizide Xl] 10 mg PO BID 11/16/14 02/14/17 History Albuterol Sulfate [Ventolin HFA] 2 puff INH Q6H PRN 10/11/16 02/14/17 History Finasteride 5 mg PO DAILY 10/11/16 02/14/17 History cloNIDine TAB [Catapres Tab] 0.2 mg PO BEDTIME 10/11/16 02/14/17 History Lisinopril [Lisinopril] 20 mg PO DAILY 02/14/17 02/14/17 History Allergies Allergy/AdvReac Type Severity Reaction Status Date / Time No Known Allergies Allergy Verified 02/14/17 09:13 Medical,Surgical,& Family Hx - Medical History Cardio: History of: Hypertension Psychological: No history of: Psychiatric Problems Neurology: No history of: Neurological Problems Endocrine: History of: Diabetes Mellitus (NIDDM), Dyslipidemia Rheumatology: No history of;: Rheumatological Problems Respiratory: History of: Asthma Renal: No history of: Renal Problems Genitourinary: History of: Prostate Problems Gastrointestinal: No history of: GI Problems - Surgical History Cardiac Surgeries: Patient Denies: Cardiac Surgery Abdominal Surgeries: Surgical HX of: Hernia Repair Orthopedic Surgeries: Surgical HX of;: Orthopedic Surgery (ORIF) - Family History Family History: Reports;: Family Cancer (mom sister), Family Hypertension (mom dad) Denies;: Family Diabetes, Family Heart Disease, Family Psychiatric Problems, Family Stroke - Social History Smoking Status: Never smoker Have you smoked in the last 12 months: No Frequency of Alcohol Use: None Type of Drug Use: None Marital Status: Lives With:: Spouse Functional capacity: independent ambulation 12 point system: reviewed and no additional remarkable complaints except as stated Exam - Constitutional Vitals: Period Temp Pulse Resp BP Sys/Spaulding Pulse Ox Last 24 Hr 97.8 F-97.8 F 82-82 20-20 213-213/109-109 97 General appearance: morbidly obese - Head Head exam: Present: normal inspection, normocephalic, atraumatic - Eye Eye exam: Present: EOMI. Absent: conjunctival injection Pupils: Present: JACQUELYN, normal accommodation - ENT ENT exam: Present: normal exam, normal external ear exam, normal oropharynx - Neck Neck exam: Present: normal inspection. Absent: lymphadenopathy, meningismus, thyromegaly - Respiratory Respiratory exam: Present: rales - Cardiovascular Cardiovascular exam: Present: regular rate and rhythm. Absent: carotid bruit, diastolic murmur, gallop, JVD, rubs, systolic murmur, tachycardia - GI/Abdominal GI/Abdominal exam: Present: normal bowel sounds, soft - Extremities Exam Extremities exam: Present: edema (+4 edema noted) - Back Exam Back exam: Present: normal inspection - Neurological Exam Neurological exam: Present: alert, oriented X3, CN II-XII intact - Psychiatric Psychiatric exam: Present: normal affect, normal mood - Skin Skin exam: Present: normal color, warm, dry Results - Labs CBC & BMP: 02/14/17 09:28 02/14/17 09:28 Lab Results: I have reviewed the past 24 hour labs <Enoc Coyle - Last Filed: 02/14/17 14:38> Assessment and Plan (1) Pulmonary vascular congestion Status: Acute Assessment and plan: Impression: 1. Pulmonary vascular congestion. I do not think that we can call this CHF yet. We will need to see what the echocardiogram looks like 2. Atrial fibrillation; this may at least be in part responsible for #1 3. Hypertension 4. Type II DM Plan: Resume home medications. Diuresis. Check electrolytes. Echocardiogram has been ordered. I am seeing this patient in colllaboration with the advanced physician practice market manager. I performed the essential elements of the history and examination, and agree with the evaluation as entered, except as noted above. This note was completed using [employer] voice recognition software. There may be anaesthesiologist errors as a result. Current Visit: Yes History of Present Illness History of present illness: Mr. Dee is a 66 year old male The patient reports a 2 or 3 month history of exertional dyspnea, with activity such as getting dressed, walking down the street, or taking a shower. He denies any dyspnea at rest. He has been hypertensive for about 10 years, and has been diabetic for the past for 5 years. He is not sure if there are any complications related to the hypertension. He does not think he has ever had heart problems, but on further questioning, it sounds as though he may have had some cardiac testing in the past. An echocardiogram done 2 years ago showed a normal ejection fraction. He has apparently had some sort of hemorrhagic event in the left eye, and underwent intraocular injections with improvement in his vision. He does not know any details surrounding those events. I reviewed his medications. He does not take insulin for his diabetes. He denies any history of kidney disease. He reports no history of any liver disease. He has some lower urinary tract symptoms. Chest x-ray in the emergency room showed pulmonary vascular congestion, and he was in atrial fibrillation when I saw him in the emergency room. Exam - Constitutional Vitals: Period Temp Pulse Resp BP Sys/Spauldign Pulse Ox Last 24 Hr 97.8 F-97.8 F 82-82 20-20 213-213/109-109 97 Heart is irregular with distant tones and no murmur or gallop. He has a few scattered rales in the lung cook, but they are mostly clear. Abdomen is obese with no mass. He has peripheral edema of both lower extremities, worse on the right. He is awake and alert Results - Labs CBC & BMP: 02/14/17 09:28 02/14/17 09:28
[2017-02-14 14:08] LABS: Risk Ratio 4.31; VLDL CHOLESTEROL 18.6 MG/DL
[2017-02-14 15:10] LABS: Apearance,Urine CLEAR (Clear); Bacteria,Urine Occasional /HPF (Few); Bilirubin,Urine Negative (Negative); Blood, Urine Moderate mg/dL (Negative); Glucose,Urine (UA) Negative (Negative); Ketones,Urine Negative (Negative); Nitrite,Urine Negative (Negative); Protein,Urine Negative; RBC,Urine 2 /HPF (0-4); Squamous Epithelial Cell,Urine Occasional /HPF (0-10); Urine Color Colorless (Yellow); Urine Urobilinogen < 2.0 EU/DL (0.2-1.0); WBC,Urine <1 /HPF (0-6)
[2017-02-14] MEDS ORDERED: niCARdipine INJ 50 MG in SODIUM CHLORIDE 0.9% 480 ML IV SCH (16:00)
[2017-02-14] MEDS: FUROSEMIDE 40 MG/4 ML VIAL IV SCH (16:39)
[2017-02-14] MEDS: INSULIN REGULAR 100 UNIT/ML SUBCUT SCH ×2 (16:40→20:43)
--- NOTE | 2017-02-14 20:11 | ECHO Report ---
Ricardo Dee Exam Date: 02/14/2017 15:07 Referring Physician: Technologist: Tiffanie Jovel RDCS Age: 66 Ht (in): 74 Wt (lb): 342 Gender: M Exam Location: [facility] Echo Indications: Heart failure, unspecified, Shortness of breath, Orthopnea, Chest pain, unspecified, Cough, Edema, unspecified, Essential (primary) hypertension, NIDDM BP: 155 / 72 HR: 102 Rhythm: Atrial fibrillation Technical Quality: Poor IMPRESSIONS Normal LV systolic function, ejection fraction 50%. Diastolic parameters cannot be well assessed due to underlying arrhythmia. Moderate to severe concentric left ventricular hypertrophy. Mild right ventricular dilation. Biatrial enlargement. Mitral regurgitation. Mild tricuspid regurgitation. Pulmonary hypertension with pulmonary artery pressure estimated at 54 mmHg. MEASUREMENTS (Male / Female) Normal Values 2D ECHO LV Diastolic Diameter PLAX 4.5 cm 4.2 - 5.9 / 3.9 - 5.3 cm LV Systolic Diameter PLAX 3.4 cm LV Fractional Shortening PLAX 24.8 % IVS Diastolic Thickness 2.0 cm 0.6 - 1.0 / 0.6 - 0.9 cm LVPW Diastolic Thickness 1.9 cm 0.6 - 1.0 / 0.6 - 0.9 cm RV Internal Dim ED PLAX 3.2 cm Aortic Root Diameter 3.2 cm LA Systolic Diameter LX 5.0 cm 3.0 - 4.0 / 2.7 - 3.8 cm DOPPLER TR Peak Velocity 331.0 cm/s TR Peak Gradient 43.8 mmHg FINDINGS Left Ventricle Normal left ventricular cavity size. Moderate to severe left ventricular hypertrophy. Left ventricular ejection fraction is estimated at 50 %. Right Ventricle The right ventricle is mildly enlarged. Right Atrium The right atrium is mildly enlarged. Left Atrium Moderately increased left atrial size. Mitral Valve Morphologically normal mitral valve. Trace mitral valve regurgitation. Aortic Valve Morphologically normal aortic valve without significant sclerosis or stenosis. There is no aortic regurgitation. Tricuspid Valve Morphologically normal tricuspid valve. Mild tricuspid valve regurgitation. Tricuspid regurgitation velocities suggest a PAP of 54 mmHg. Pulmonic Valve Morphologically normal pulmonic valve without significant stenosis. There is no pulmonic regurgitation. Pericardium Normal pericardium without effusion. Aorta Normal ascending aorta dimension. Lucila Heard MD (Electronically Signed) Final Date: 14 February 2017 20:10
[2017-02-14] MEDS: PRAVASTATIN 40 MG TABLET PO SCH (20:43)
[2017-02-14] MEDS: niCARdipine INJ 50 MG in SODIUM CHLORIDE 0.9% 480 ML IV SCH (23:47)
[2017-02-15 06:15] LABS: Basophils % 0.3 % (0.0-0.8); Eosinophils # 0.1 10*3/uL (0.0-0.87); Eosinophils % 0.8 % (0.00-10.9); Hematocrit 32.9 VOL% (42.0-52.0); Hemoglobin 10.7 GM/DL (14.0-18.0); Immature Granulocytes % 0.3 %; Immature Granulocytes Absolute 0.03 #; Lymphocytes # 1.3 10*3/uL (1.4-4.0); Lymphocytes % 11.9 % (21.2-54.2); Mean Corpuscular HGB Conc 32.5 GM/DL (32-36); Mean Corpuscular Hemoglobin 25 PG (27-34); Mean Corpuscular Volume 76.9 FL (87-102); Monocytes # 0.8 10*3/uL (0.11-0.8); Neutrophils # 8.9 10*3/uL (1.4-7.4); Neutrophils % 79.7 % (38.7-73.9); Platelet Count 233 T/CUMM (130-400); Red Blood Count 4.28 MC/CUMM (3.8-5.5); Red Cell Distribution Width 17.2 % (9.3-17.3); White Blood Count 11.2 T/CUMM (4-12)
[2017-02-15 06:55] LABS: Bilirubin,Total 0.5 MG/DL (0.2-1.0); Calcium 8.7 MG/DL (8.5-10.1); Magnesium 2.1 MG/DL (1.8-2.4); Osmolality,Calculated 289.8 MOS/KG (273-304); Phosphorous 3.2 MG/DL (2.5-4.9); Potassium 3.8 MMOL/L (3.5-5.1); Total Protein 6.7 G/DL (6.4-8.3)
[2017-02-15] MEDS: niCARdipine INJ 50 MG in SODIUM CHLORIDE 0.9% 480 ML IV SCH ×2 (07:41→18:22)
[2017-02-15] MEDS: ASPIRIN EC 81 MG TABLET PO SCH (08:54)
[2017-02-15] MEDS: INSULIN REGULAR 100 UNIT/ML SUBCUT SCH ×4 (08:54→21:32)
[2017-02-15] MEDS: METOPROLOL SUCCINATE XL 100 MG TABLET PO SCH (08:55)
[2017-02-15] MEDS: FUROSEMIDE 40 MG/4 ML VIAL IV SCH (08:55)
[2017-02-15] MEDS: hydroCHLOROthiazide 25 MG TABLET PO SCH (08:55)
[2017-02-15] MEDS: amLODIPine 10 MG TABLET PO SCH (08:55)
[2017-02-15] MEDS: FINASTERIDE 5 MG TABLET PO SCH (08:55)
--- NOTE | 2017-02-15 09:14 | Hospitalist Progress Note ---
Assessment and Plan (1) Pulmonary vascular congestion Status: Acute Assessment and plan: Impression: 1. Pulmonary vascular congestion, likely related to uncontrolled hypertension 2. Atrial fibrillation; this may at least be in part responsible for #1 3. Hypertension, under 4. Type II DM Plan: Titrate antihypertensives. Hope to discontinue Cardene later today, and move to a room. This note was completed using [employer] voice recognition software. There may be field service specialist errors as a result. Current Visit: Yes Hospitalist: Subjective Interval history: Follow-up hypertension and atrial fibrillation. The patient reports that he feels pretty good. He denies any chest discomfort or dyspnea. His blood pressure has come down, although he remains on 7 mg/h of Cardene. He is oral hypertensives have all been resumed. I think we will need to titrate these in order to get him off of the nicardipine. Echocardiogram was performed, and showed a normal ejection fraction. Irregular rhythm made evaluation of diastolic function difficult. Exam - Constitutional Vitals: Period Temp Pulse Resp BP Sys/Spaulding Pulse Ox Last 24 Hr 97.0 F-97.8 F 74-124 17-25 138-246/55-138 95-100 Vital signs are noted above. Heart is irregular with a soft systolic murmur. He has bibasilar rales. He is awake and alert. Results - Labs CBC & BMP: 02/15/17 06:07 02/15/17 06:07 Lab Results: I have reviewed the past 24 hour labs
[2017-02-15] MEDS: PRAVASTATIN 40 MG TABLET PO SCH (21:32)
[2017-02-16] MEDS: niCARdipine INJ 50 MG in SODIUM CHLORIDE 0.9% 480 ML IV SCH ×2 (00:05→05:32)
[2017-02-16] MEDS: INSULIN REGULAR 100 UNIT/ML SUBCUT SCH ×4 (07:27→21:27)
[2017-02-16] MEDS: ASPIRIN EC 81 MG TABLET PO SCH (08:20)
[2017-02-16] MEDS: METOPROLOL SUCCINATE XL 100 MG TABLET PO SCH (08:20)
[2017-02-16] MEDS: amLODIPine 10 MG TABLET PO SCH (08:20)
[2017-02-16] MEDS: hydroCHLOROthiazide 25 MG TABLET PO SCH (08:21)
[2017-02-16] MEDS: FINASTERIDE 5 MG TABLET PO SCH (08:21)
--- NOTE | 2017-02-16 08:43 | Hospitalist Progress Note ---
Assessment and Plan (1) Pulmonary vascular congestion Status: Acute Assessment and plan: Impression: 1. Hypertension, improving control 2. Type II DM 3. Atrial fibrillation, likely paroxysmal Plan: Wean Cardene. We may need to titrate his oral antihypertensives. Hold off on oral hypoglycemics for now. Transfer to room later today if we can get him off the Cardene.. This note was completed using [employer] voice recognition software. There may be client technical specialist errors as a result. Current Visit: Yes Hospitalist: Subjective Interval history: Follow-up hypertensive urgency, pulmonary vascular congestion, atrial fibrillation, and type II DM. The patient's blood pressure is improving. We are attempting to wean the nicardipine. Systolic blood pressure is currently 170. We titrated his oral antihypertensives yesterday. He is currently in and out of atrial fibrillation. Dyspnea has resolved. Glucoses are adequately controlled on sliding scale. Exam - Constitutional Vitals: Period Temp Pulse Resp BP Sys/Spaulding Pulse Ox Last 24 Hr 96.9 F-98.7 F 72-105 15-26 136-206/52-100 95-100 Vital signs are noted above. Heart is regular with skips. He shows sinus on the monitor with frequent PACs and an occasional burst of atrial fibrillation. Lungs are clear with no rales or wheezes. There is no significant peripheral edema. He is awake and alert. Results - Labs CBC & BMP: 02/15/17 06:07 02/15/17 06:07 Lab Results: I have reviewed the past 24 hour labs
[2017-02-16] MEDS ORDERED: niCARdipine INJ 25 MG in SODIUM CHLORIDE 0.9% 240 ML IV SCH (09:00)
--- NOTE | 2017-02-16 14:32 | Event Note ---
Blood pressure has been adequately controlled off of the nicardipine. I had added hydralazine and increased his clonidine. We will transfer him to a room. He should be able to discharge in the morning.
[2017-02-16] MEDS: PRAVASTATIN 40 MG TABLET PO SCH (20:55)
[2017-02-17] MEDS: INSULIN REGULAR 100 UNIT/ML SUBCUT SCH ×2 (09:23→13:33)
[2017-02-17] MEDS: amLODIPine 10 MG TABLET PO SCH (09:23)
[2017-02-17] MEDS: hydroCHLOROthiazide 25 MG TABLET PO SCH (09:24)
[2017-02-17] MEDS: FINASTERIDE 5 MG TABLET PO SCH (09:24)
[2017-02-17] MEDS: ASPIRIN EC 81 MG TABLET PO SCH (09:25)
[2017-02-17] MEDS: METOPROLOL SUCCINATE XL 100 MG TABLET PO SCH (09:26)
--- NOTE | 2017-02-17 11:09 | Discharge Summary ---
Hospital Course - Hospital Course Hospital Course: Discharge diagnosis: 1. Hypertensive urgency 2. Type II DM 3. Morbid obesity The patient was admitted to the hospital for treatment of a hypertensive urgency. He was initially admitted to the ICU and placed on a nicardipine infusion. He had control of his blood pressure after about 36 hours on the nicardipine as well as some adjustment of his oral hypertensives. On the day of discharge, his blood pressure had come down to an acceptable level. Glucoses remained less than 200 during the hospitalization on no oral hypoglycemics. He is not ready for discharge. Medication reconciliation has been performed. ADA diet. Activity as tolerated. Follow-up with local physician. This note was completed using [employer] voice recognition software. There may be partner manager errors as a result. Diagnosis - Discharge Diagnosis (1) Pulmonary vascular congestion Status: Acute Discharge Plan - Discharge Data Disposition: Disch To Home/Self Care Condition at Discharge: Stable Discharge Diet: advance to your usual diet Activity: resume usual activities as tolerated Hygiene: no restrictions Weight Bearing at Discharge: full weight bearing - Discharge Medications New cloNIDine TAB [Catapres Tab] 0.2 mg PO BID #60 tablet hydrALAZINE TAB [Apresoline Tab] 50 mg PO BID #60 tablet Continue amLODIPine [Norvasc] 10 mg PO DAILY Aspirin EC Tab 81 mg PO DAILY Pravastatin [Pravachol] 40 mg PO BEDTIME Hydrochlorothiazide 25 mg PO DAILY glipiZIDE [Glipizide Xl] 10 mg PO BID Metoprolol Succinate 100 mg PO DAILY Metformin HCl 500 mg PO BID Albuterol Sulfate [Ventolin HFA] 2 puff INH Q6H PRN PRN Reason: Shortness Of Breath/Wheezing Finasteride 5 mg PO DAILY Lisinopril 20 mg PO DAILY Discontinued cloNIDine TAB [Catapres Tab] 0.2 mg PO BEDTIME - Follow Up or Referral - Forms/Instructions Exam - Constitutional Vitals: Period Temp Pulse Resp BP Sys/[place] Pulse Ox Last 24 Hr 97.0 F-98.3 F 67-92 16-23 149-186/64-96 94-98 Vital signs are noted above. Heart is regular with no murmur or gallop. Lungs are fairly clear with no rales or wheezes. He is awake and alert. Discharge Results Labs on day of discharge: Labs from last 24 hours 02/17/17 02/16/17 02/16/17 07:31 21:15 15:26 POC Glucose 163 H 142 H 115 H DS: Provider Date of admission: 02/14/17 12:51 Primary care physician: Loida Church M.D. Attending physician on admission: Constantino Cooley Consults: 02/14/17 13:26 Consult to Dietitian [CONS] Routine Reason for Dietitian: Other Consult Comment: Education on low sodium diet 02/14/17 13:33 Consult to [facility], Educator [CONS] Routine Reason for Insole Lip Turner: Diabetes Education 02/14/17 14:50 Consult to Pastoral Services [CONS] Routine Comment: Pastoral Screen: Request Employee Communications Manager Visit Pastoral Screen Source of Request: Patient Discharging clinician: Enoc Coyle MD Expected date of discharge: 02/17/17
[2017-02-17 12:06] VITALS: BP 147/80
--- NOTE | 2017-02-21 08:40 | Physician Query Form ---
CLICK EDIT DOCUMENT TO SELECT QUERY ANSWER --> OK --> SIGN Alycia Pickett RN Clinical Senior Sas Programmer W) [phone] (f) [phone] [email or web address] PROVIDERS: Make your selection(s) from the choices in EACH section by typing an "x" and enter comments in the comment section. Please use your independent medical judgment in providing your response. This request does not imply that any particular answer is desired or expected. CLINICAL INDICATORS: (Providers should not edit this section) Based on documentation of "Acute CHF" "highly suggestive of component of mild cardiac compensated congestive heart failure" Echo showed EF 50% BNP of 250. Treated with IV Lasix. Please provide further specificity regarding CHF. ACUITY: ( ) Acute ( ) Chronic ( ) Acute on Chronic ( x) Clinically unable to determine TYPE: ( ) Systolic (HFrEF - heart failure with reduced systolic function/EF) ( ) Diastolic (HFpEF - heart failure with preserved systolic function/EF) ( ) Combined Systolic/Diastolic ( ) Other, please specify: ( x) Clinically unable to determine ( ) Past Medical History of Systolic CHF ( ) Past Medical History of Diastolic CHF (x ) Clinically unable to determine COMMENTS: PLEASE ALSO DOCUMENT RESPONSE IN PROGRESS NOTES AND/OR DISCHARGE SUMMARY Use of terms such as suspected, likely, or probable (associated with a specific diagnosis that is being evaluated, monitored, or treated as if it exists) are acceptable and can be restated in the discharge summary if not ruled out. MTDD
--- NOTE | 2017-03-01 08:06 | Physician Query Form ---
CLICK EDIT DOCUMENT TO SELECT QUERY ANSWER --> OK --> SIGN Alycia Pickett RN Clinical Loom Technician W) [phone] (f) [phone] [email or web address] PROVIDERS: Make your selection(s) from the choices in EACH section by typing an "x" and enter comments in the comment section. Please use your independent medical judgment in providing your response. This request does not imply that any particular answer is desired or expected. CLINICAL INDICATORS: (Providers should not edit this section) Based on documentation of "Acute CHF" "highly suggestive of component of mild cardiac compensated congestive heart failure" Echo showed EF 50% BNP of 250. Treated with IV Lasix. Please provide further specificity regarding CHF. ACUITY: ( ) Acute ( ) Chronic ( ) Acute on Chronic ( x) Clinically unable to determine TYPE: ( ) Systolic (HFrEF - heart failure with reduced systolic function/EF) ( ) Diastolic (HFpEF - heart failure with preserved systolic function/EF) ( ) Combined Systolic/Diastolic ( ) Other, please specify: ( x) Clinically unable to determine ( ) Past Medical History of Systolic CHF ( ) Past Medical History of Diastolic CHF ( x) Clinically unable to determine COMMENTS: PLEASE ALSO DOCUMENT RESPONSE IN PROGRESS NOTES AND/OR DISCHARGE SUMMARY Use of terms such as suspected, likely, or probable (associated with a specific diagnosis that is being evaluated, monitored, or treated as if it exists) are acceptable and can be restated in the discharge summary if not ruled out. MTDD
--- NOTE | 2017-03-01 09:27 | Physician Query Form ---
CLICK EDIT DOCUMENT TO SELECT QUERY ANSWER --> OK --> SIGN Alycia Pickett RN Clinical Occupational Health And Safety Manager W) [phone] (f) [phone] [email or web address] PROVIDERS: Make your selection(s) from the choices in EACH section by typing an "x" and enter comments in the comment section. Please use your independent medical judgment in providing your response. This request does not imply that any particular answer is desired or expected. CLINICAL INDICATORS: (Providers should not edit this section) Based on documentation of "Acute CHF" "highly suggestive of component of mild cardiac compensated congestive heart failure" Echo showed EF 50% BNP of 250. Treated with IV Lasix. Please provide further specificity regarding CHF. ACUITY: ( ) Acute ( ) Chronic ( ) Acute on Chronic (X ) Clinically unable to determine TYPE: ( ) Systolic (HFrEF - heart failure with reduced systolic function/EF) ( ) Diastolic (HFpEF - heart failure with preserved systolic function/EF) ( ) Combined Systolic/Diastolic ( ) Other, please specify: ( )X Clinically unable to determine ( ) Past Medical History of Systolic CHF ( ) Past Medical History of Diastolic CHF ( X) Clinically unable to determine COMMENTS: PLEASE ALSO DOCUMENT RESPONSE IN PROGRESS NOTES AND/OR DISCHARGE SUMMARY Use of terms such as suspected, likely, or probable (associated with a specific diagnosis that is being evaluated, monitored, or treated as if it exists) are acceptable and can be restated in the discharge summary if not ruled out. MTDD
== END 2017-02-17 13:28 | disposition home or self-care (01) | DRG 305 ==
LOC: N.ED 09:04 → SUATTDRO 12:51 → N.EDINP 12:51 → N.CC 14:22 → N.TELEN 02-16 18:33
PROVIDERS: ATTEND Internal Medicine Geriatric Medicine